=== PATIENT | female | born 1935 | race Caucasian/White ===

== ENCOUNTER 2019-12-07 09:23 | Emergency (ER) | payer MEDICARE ==
[2019-12-07 09:38] VITALS: TEMP 98.1
[2019-12-07] MEDS ORDERED: KETOROLAC 15 MG/ML 1 ML VIAL IVP STA (10:01)
--- NOTE | 2019-12-07 10:07 | ED ---
General Adult HPI - General Chief complaint: Back Pain/Injury Stated complaint: Back pain Time Seen by Provider: 12/07/19 09:35 Source: patient, RN notes reviewed, old records reviewed Mode of arrival: ambulatory Limitations: no limitations - History of Present Illness Initial comments: This is an 84-year-old female who presents to the emergency department complaining of left lower back pain that radiates down her left leg. Patient states she's had sciatica in the past and this feels the same except that the pain is not getting any better. Patient states she was on a steroid pack recently and it did improve her pain but once. The pain came back and now it's getting worse again. Patient states she saw her primary medical care doctor and she was on steroids again starting on Friday and she felt much better severity and Friday but yesterday she had a lot more pain was having time sleeping. Patient states any movement seems to increase the pain. Patient denies any numbness weakness. Patient denies any bladder retention or incontinence. Patient states laying flat makes it worse and walking seems to make it worse. Patient denies any fever chills. Patient denies any other problems at this time. - Related Data Home Medications Medication Instructions Recorded Confirmed Sotalol [Betapace] 80 mg PO BID 08/29/14 12/07/19 Acetaminophen Tab [Tylenol] 650 mg PO Q4H PRN 12/07/19 12/07/19 Apixaban [Eliquis] 5 mg PO BID 12/07/19 12/07/19 Calcium Carbonate [Calcium] 600 mg PO BID 12/07/19 12/07/19 Cholecalciferol [Vitamin D3 (25 1,000 unit PO DAILY 12/07/19 12/07/19 Mcg = 1000 Iu)] Levothyroxine Sodium [Synthroid] 112 mcg PO DAILY 12/07/19 12/07/19 methylPREDNISolone [Medrol] 4 mg PO TID 12/07/19 12/07/19 Allergies Allergy/AdvReac Type Severity Reaction Status Date / Time Sulfa (Sulfonamide Allergy Rash/Hives Verified 12/07/19 10:44 Antibiotics) Review of Systems ROS Statement: Those systems with pertinent positive or pertinent negative responses have been documented in the HPI. ROS Other: All systems not noted in ROS Statement are negative. Past Medical History Past Medical History: Atrial Fibrillation, Hyperlipidemia, Hypertension, Sleep Apnea/CPAP/BIPAP, Thyroid Disorder Additional Past Medical History / Comment(s): uses c pap at home, scoliosis History of Any Multi-Drug Resistant Organisms: None Reported Past Surgical History: Appendectomy, Bladder Surgery, Cholecystectomy, Hysterectomy, Orthopedic Surgery Additional Past Surgical History / Comment(s): partial left knee Past Anesthesia/Blood Transfusion Reactions: No Reported Reaction Past Psychological History: No Psychological Hx Reported Smoking Status: Never smoker Past Alcohol Use History: Occasional Past Drug Use History: None Reported - Past Family History Father Family Medical History: No Reported History Sister(s) Family Medical History: Cancer, Rheumatoid Arthritis (RA) Additional Family Medical History / Comment(s): lymphoma Mother Family Medical History: No Reported History Brother(s) Additional Family Medical History / Comment(s): heart condition General Exam - General Exam Comments Initial Comments: GENERAL: Patient is well-developed and well-nourished. Patient is nontoxic and well- hydrated and is in moderate distress. ENT: Neck is soft and supple. No significant lymphadenopathy is noted. Oropharynx is clear. Moist mucous membranes. Neck has full range of motion without eliciting any pain. EYES: The sclera were anicteric and conjunctiva were pink and moist. Extraocular movements were intact and pupils were equal round and reactive to light. Eyelids were unremarkable. PULMONARY: Unlabored respirations. Good breath sounds bilaterally. No audible rales rhonchi or wheezing was noted. CARDIOVASCULAR: There is a regular rate and rhythm without any murmurs gallops or rubs. ABDOMEN: Soft and nontender with normal bowel sounds. SKIN: Skin is clear with no lesions or rashes and otherwise unremarkable. NEUROLOGIC: Patient is alert and oriented x3. Cranial nerves II through XII are grossly intact. Motor and sensory are also intact. Normal speech, volume and content. Symmetrical smile. Straight leg test is positive with both legs at about 20 MUSCULOSKELETAL: Normal extremities with adequate strength and full range of motion. No lower extremity swelling or edema. No calf tenderness. LYMPHATICS: No significant lymphadenopathy is noted PSYCHIATRIC: Normal psychiatric evaluation. Normal interpersonal interactions appears functi onally intact in deals appropriately with others. Limitations: no limitations Course Vital Signs 12/07/19 12/07/19 12/07/19 09:33 10:23 11:37 Temperature 98.1 F Pulse Rate 56 L 88 65 Respiratory 18 16 16 Rate Blood Pressure 155/85 148/106 119/90 O2 Sat by Pulse 98 100 Oximetry Medical Decision Making - Medical Decision Making Patient's CT of the lumbar sacral area showed disc bulging and 2 areas. Patient received Toradol and a half of Dilaudid and patient was feeling considerably better was and bleeding and did not want to stay in the hospital. I did offer her pain relief for a 23 observation but she did not want to stay. Patient states she'll follow-up with primary medical care doctor. Disposition Clinical Impression: Sciatica Disposition: HOME SELF-CARE Condition: Good Instructions (If sedation given, give patient instructions): Sciatica (ED) Is patient prescribed a controlled substance at d/c from ED?: No Referrals: Americo Padron DO [Primary Care Provider] - 1-2 days Time of Disposition: 11:45
[2019-12-07] MEDS: HYDROmorphone 0.5 MG/0.5 ML SYRINGE IM STA ×2 (10:10→10:16)
[2019-12-07] MEDS ORDERED: HYDROmorphone 0.5 MG/0.5 ML SYRINGE IVP STA (10:14)
[2019-12-07 10:24] VITALS: RESP 16
--- NOTE | 2019-12-07 11:11 | CT ---
EXAMINATION TYPE: CT lumbar spine wo con DATE OF EXAM: 12/07/2019 COMPARISON: HISTORY: Low back pain without injury for 3-[address] DLP: 966.5 mGycm CONTRAST: CT scan of the lumbar is performed , patient injected with mL of . TECHNIQUE: CT of the lumbar spine is performed on a spiral scan at 3 mm thick sections. Reconstructed images are performed in the coronal and sagittal planes. FINDINGS: T12-L1: No focal disc herniation or significant disc bulge is evident. No spinal canal stenosis or neural foraminal stenosis is present. L1-L2: No focal disc herniation or significant disc bulge is evident. No spinal canal stenosis or n eural foraminal stenosis is present L2-L3: Broad-based disc bulge has moderate anterior thecal sac flattening. No AP spinal canal stenosi s is present. Mild bilateral foraminal narrowing is present. L3-L4: Endplate spurring and mild disc bulge is present with anterior thecal sac flattening. No AP sp inal canal stenosis present. Facet degenerative changes are noted. L4-L5: Broad-based disc bulge is anterior thecal sac compression. Facet hypertrophy and ligamentum fl avum laxity is present with mild canal narrowing at the L5 superior endplate level. Moderate right fo raminal narrowing is present. L5-S1: Mild disc bulge is present with anterior thecal sac contact. No AP spinal canal stenosis prese nt. Neural foramen are patent. Scoliosis is present. Loss of disc height is noted L2-3 L3-4. IMPRESSION: 1. Degenerative disc changes L2-3, L3-4, L4-5. 2. Disc bulging with moderate anterior thecal sac compression coupled with ligamentum flavum laxity L 4-5 is contributing to some canal narrowing. 3. Disc bulging L2-3 L3-4 residual disc material has anterior thecal sac flattening at these levels. 4. Moderate right foraminal narrowing due to disc bulging and degenerative changes L4-5.
[2019-12-07 11:38] VITALS: BP 119/90; PULSE 65
[2019-12-07] MEDS ORDERED: methylPREDNISolone SOD SUCCI 125 MG/2 ML VIAL IV STA (11:40)
== END 2019-12-07 11:46 | disposition home or self-care (01) ==
LOC: EC 09:23
DX: M51.16 Intervertebral disc disorders with radiculopathy, lumbar region (principal); I48.91 Unspecified atrial fibrillation; E78.5 Hyperlipidemia, unspecified; I10 Essential (primary) hypertension; G47.30 Sleep apnea, unspecified; E07.9 Disorder of thyroid, unspecified; Z79.890 Hormone replacement therapy; Z79.01 Long term (current) use of anticoagulants; Z79.52 Long term (current) use of systemic steroids; Z79.899 Other long term (current) drug therapy; Z99.89 Dependence on other enabling machines and devices; Z88.2 Allergy status to sulfonamides; Z90.49 Acquired absence of other specified parts of digestive tract
CPT/HCPCS: 72131; 96374; 99284; 96375 ×2; J2930; J1885; J1170